=== PATIENT | female | born 1945 ===

== ENCOUNTER → 2025-02-21 06:30 | Outpatient (REF) | payer MEDICARE, SELFPAY ==
[2025-02-21 17:58] LABS: Urine Character Slightly Cloudy (Clear)
[2025-02-21 17:59] LABS: Urine Urothelial Cell 0-2 /LPF (FEW)
== END ==
LOC: OLABN 06:30
PROVIDERS: ATTENDING PHYSICIAN Internal Medicine Geriatric Medicine
DX: R35.0 Frequency of micturition (principal)
CPT/HCPCS: 81003; 81015

== ENCOUNTER → 2025-02-22 11:18 | Outpatient (REF) | payer MEDICARE, SELFPAY ==
[2025-02-22 11:33] LABS: Hematocrit 34.9 % (37.0-47.0); Hemoglobin 11.2 g/dL (12.0-16.0); Mean Corp Hgb Conc. 32.1 g/dL (33.0-37.0); Mean Corpuscular Volume 95.4 fL (81.0-99.0); Nucleated Red Blood Cells % 0 %; Platelet Count 214 10^3/uL (130-400); Red Cell Dist. Width 13.8 % (11.5-14.5)
[2025-02-22 12:55] LABS: Vitamin D, 25-OH*** 13.0 ng/mL (30-80)
[2025-02-22 14:03] LABS: ALT (SGPT) 12 U/L (0-35); AST (SGOT) 15 U/L (14-36); Albumin 3.6 g/dl (3.5-5.0); Alkaline Phosphatase 77 U/L (38-126); Blood Urea Nitrogen 21 mg/dl (7-17); Calcium 8.7 mg/dl (8.4-10.2); Carbon Dioxide 33 mmol/L (22-30); Chloride 101 mmol/L (98-107); Glucose 144 mg/dl (70-99); HDL Cholesterol 32 mg/dl; LDL Cholesterol, Calculated 49 mg/dl; Potassium 4.0 mmol/L (3.5-5.1); Sodium 140 mmol/L (135-145); Total Protein 6.3 g/dl (6.3-8.2); Very Low Density Lipoprotein 31 mg/dl (0-30); eGFR > 60.00
[2025-02-22 14:10] LABS: Glycohemoglobin (HgbA1c) 8.1 % (4.0-5.9)
== END ==
LOC: OLABN 11:18
PROVIDERS: ATTENDING PHYSICIAN Internal Medicine Geriatric Medicine
DX: I10 Essential (primary) hypertension (principal); E11.9 Type 2 diabetes mellitus without complications; E55.9 Vitamin D deficiency, unspecified; E78.5 Hyperlipidemia, unspecified
CPT/HCPCS: 36415; 80053; 80061; 82306; 83036; 85025

== ENCOUNTER → 2025-02-27 10:49 | Outpatient (REF) | payer MEDICARE, SELFPAY ==
[2025-02-27 12:12] LABS: Urine Character Clear (Clear)
[2025-02-27 12:23] LABS: Urine Red Blood Cell 0-2 /HPF (0-2); Urine White Cell 0-2 /HPF (0-5)
== END ==
LOC: OLABN 10:49
PROVIDERS: ATTENDING PHYSICIAN Internal Medicine Geriatric Medicine
DX: R82.90 Unspecified abnormal findings in urine (principal)
CPT/HCPCS: 81003; 81015; 87086

== ENCOUNTER → 2025-03-08 11:59 | Outpatient (REF) | payer MEDICARE, SELFPAY ==
[2025-03-08 13:22] LABS: Vitamin D, 25-OH*** 22.0 ng/mL (30-80)
== END ==
LOC: OLABN 11:59
PROVIDERS: ATTENDING PHYSICIAN Internal Medicine Geriatric Medicine
DX: E55.9 Vitamin D deficiency, unspecified (principal)
CPT/HCPCS: 36415; 82306